=== PATIENT | male | born 1990 | race Caucasian/White ===

== ENCOUNTER 2018-03-31 17:01 | Observation (INO) ==
[2018-03-31 18:14] LABS: Basophils # 0.1 K/mcL (0.0-0.2); Basophils % 0.7 %; Eosinophils # 0.3 K/mcL (0.0-0.6); Eosinophils % 2.9 %; Hematocrit 39.4 % (37.5-50.1); Hemoglobin 13.2 g/dL (12.9-16.9); Immature Granulocytes % 0.4 % (0-4); Lymphocytes # 1.9 K/mcL (0.6-4.6); Lymphocytes % 18.4 %; Mean Corpuscular HGB Conc 33.5 g/dL (31.6-35.5); Mean Corpuscular Hemoglobin 29.8 pg (28.0-33.3); Mean Corpuscular Volume 88.9 fL (83.0-100.0); Mean Platelet Volume 10.9 fL (9.4-12.4); Monocytes % 10.4 %; Neutrophils # 6.7 K/mcL (1.6-8.9); Platelet Count 237 K/mcL (140-400); Red Blood Count 4.43 M/mcL (4.19-5.50); Red Cell Distribution Width 13.1 % (11.5-14.5); Segmented Neutrophils % 67.2 %
[2018-03-31 18:32] LABS: Alanine Aminotransferase 23 Units/L (7-52); Albumin 4.2 g/dL (3.5-5.7); Albumin/Globulin Ratio 1.4 (1.1-2.2); Alkaline Phosphatase 66 Units/L (34-104); Aspartate Amino Transferase 20 Units/L (13-39); BUN/Creatinine Ratio 18 (6-26); Bilirubin,Direct 0.2 mg/dL (0.0-0.2); Bilirubin,Indirect 0.4 mg/dL (0.0-1.2); Bilirubin,Total 0.6 mg/dL (0.3-1.0); Blood Urea Nitrogen 14 mg/dL (6-20); Calcium 9.2 mg/dL (8.6-10.3); Carbon Dioxide 29 mEq/L (23-29); Chloride 101 mEq/L (98-107); Globulin 2.9 g/dL (2.4-3.5); Glucose 98 mg/dL (70-105); Lipase 9 Units/L (11-82); Osmolality,Calculated 282 (280-300); Potassium 4.4 mEq/L (3.5-5.1); Sodium 136 mEq/L (136-145); Total Protein 7.1 g/dL (6.4-8.9); eGFR For Non-African Americans > 60 (> 60)
[2018-03-31] MEDS ORDERED: *HR* Morphine Immed Rel 30 MG TABLET PO ONE (19:21)
[2018-03-31] MEDS ORDERED: Ketorolac 15 MG/ML VIAL IVP ONE (19:21)
[2018-03-31] MEDS ORDERED: Ondansetron 4 MG/2 ML VIAL IVP ONE (19:21)
--- NOTE | 2018-03-31 19:22 | Emergency Department Note ---
Disposition Clinical Impression: Appendicitis Qualifiers: Appendicitis type: acute appendicitis Acute appendicitis type: unspecified acute appendicitis type Qualified Code(s): K35.80 - Unspecified acute appendicitis Disposition: Admitted As Inpatient Abdominal Pain HPI - General Chief Complaint: ED Abdominal Pain Stated Complaint: "appendix is about to pop" Time Seen by Provider: 03/31/18 19:09 Nursing Notes Reviewed: Yes Vital Signs Reviewed: Yes - History of Present Illness HPI Narrative: 27-year-old male presents emergency department with concern for sudden onset right lower quadrant abdominal pain that started at midnight. Patient states that this been going on throughout the day. He states that he ate breakfast this morning and did not throw it up, but he has been very nauseous. Reports no fevers. Does report mild dysuria. Does report some flank pain with it but denies any testicular pain. Has not eaten since noon today. Pain Scale: 6 - Related Data Home Medications Medication Instructions Recorded Confirmed No Known Home Drugs 03/31/18 03/31/18 Allergies Allergy/AdvReac Type Severity Reaction Status Date / Time No Known Allergies Allergy Verified 03/31/18 17:40 All systems ED: reviewed and negative except as stated. Review of Systems: As Per HPI Constitutional: Denies: fever Cardiovascular: Denies: chest pain Respiratory: Denies: cough, dyspnea Gastrointestinal: Reports: abdominal pain, nausea. Denies: vomiting Genitourinary: Denies: urgency, dysuria, frequency Musculoskeletal: Reports: back pain Integumentary: Denies: rash Neurological: Denies: weakness Hematological/Lymphatic: Denies: easy bleeding Abdominal Pain PMH - Past Medical History Medical history: Reports: non-contributory Male Surgical History: Reports: no surgical history Psychiatric history: Reports: no psych history - Social History Smoking status: Current some day smoker Alcohol use: Reports: none Drug use: Reports: none Physical Exam - Head Head exam: normocephalic - Eye Eye exam: Present: EOMI - ENT ENT exam: mucous membranes moist - Neck Neck exam: Present: trachea midline - Chest Chest inspection: Present: symmetric chest wall rise - Respiratory Respiratory exam: Present: normal lung sounds bilaterally. Absent: respiratory distress, prolonged expiratory phase - Cardiovascular Cardiovascular exam: Present: regular rate, normal rhythm - Abdominal Exam Abdominal exam: Present: soft, tenderness, tenderness at McBurney's Point. Absent: distention, guarding, rebound, rigidity - Extremities Exam Extremities exam: Present: full ROM - Back Exam Back exam: Present: full ROM - Neurological Exam Neurological exam: Present: alert, oriented X3 - Psychiatric Psychiatric exam: Present: normal affect, normal mood - Skin Skin exam: Present: warm, dry, intact, normal color. Absent: rash Course Vital Signs Temperature 99.0 F 03/31/18 17:39 Pulse Rate 68 03/31/18 17:39 Respiratory Rate 14 03/31/18 17:39 Blood Pressure 114/71 03/31/18 17:39 O2 Sat by Pulse Oximetry 96 03/31/18 17:39 Temperature 99.0 F 03/31/18 19:29 Pulse Rate 64 03/31/18 21:06 Respiratory Rate 18 03/31/18 21:06 Blood Pressure 116/80 03/31/18 21:06 O2 Sat by Pulse Oximetry 98 03/31/18 21:06 Oxygen Delivery Oxygen Delivery Room Air Abdominal Pain - MDM Narrative Medical decision making narrative: Residual male presents emergency department with concern for right lower quadrant abdominal pain since midnight. We will obtain CT scan of abdomen and pelvis. Revealed acute appendicitis with large appendicolith by radiology. I called the general surgeon instructional systems specialist, Dr. jaramillo. He agreed to accept patient for admission on the floor. Patient was given Zosyn here in the emergency department. Of also ordered his repeat dose at 8 hours after his first one. Patient has been given fluids. His also been given pain medication. Patient's last meal was at noon today. Patient hemodynamically stable at this time. He does not have a leukocytosis. Currently awaiting urinalysis results at time of admission. Patient agrees to plan. Abdomen/Pelvis CT 03/31/18 19:19 IMPRESSION: Findings are compatible with acute appendicitis, with a large appendicolith. Small amount of fluid adjacent to the inflamed appendix and within the pelvis. No drainable abscess. No evidence of intra-abdominal free air. D/ / 03/31/2018 20:38:12 Randy Willingham MD / jasson Interpreting Provider: Randy Willingham MD Vital Signs Temperature 99.0 F 03/31/18 17:39 Pulse Rate 68 03/31/18 17:39 Respiratory Rate 14 03/31/18 17:39 Blood Pressure 114/71 03/31/18 17:39 O2 Sat by Pulse Oximetry 96 03/31/18 17:39 Temperature 99.0 F 03/31/18 19:29 Pulse Rate 64 03/31/18 21:06 Respiratory Rate 18 03/31/18 21:06 Blood Pressure 116/80 03/31/18 21:06 O2 Sat by Pulse Oximetry 98 03/31/18 21:06 Oxygen Delivery Oxygen Delivery Room Air - Lab Data Result diagrams: 03/31/18 17:57 03/31/18 17:57 Lab Results 03/31/18 03/31/18 Range/Units 17:57 17:57 WBC 10.0 (4.3-11.1) K/mcL RBC 4.43 (4.19-5.50) M/mcL Hgb 13.2 (12.9-16.9) g/dL Hct 39.4 (37.5-50.1) % MCV 88.9 (83.0-100.0) fL MCH 29.8 (28.0-33.3) pg MCHC 33.5 (31.6-35.5) g/dL RDW 13.1 (11.5-14.5) % Plt Count 237 (140-400) K/mcL MPV 10.9 (9.4-12.4) fL Immature Gran % 0.4 (0-4) % Seg Neutrophils % 67.2 % Lymphocytes % 18.4 % Monocytes % 10.4 % Eosinophils % 2.9 % Basophils % 0.7 % Neutrophils # 6.7 (1.6-8.9) K/mcL Lymphocytes # 1.9 (0.6-4.6) K/mcL Monocytes # 1.0 (0.0-1.3) K/mcL Eosinophils # 0.3 (0.0-0.6) K/mcL Basophils # 0.1 (0.0-0.2) K/mcL Sodium 136 (136-145) mEq/L Potassium 4.4 (3.5-5.1) mEq/L Chloride 101 (98-107) mEq/L Carbon Dioxide 29 (23-29) mEq/L BUN 14 (6-20) mg/dL Creatinine 0.77 (0.70-1.30) mg/dL Est GFR ( Amer) > 60 (> 60) Est GFR (Non-Af Amer) > 60 (> 60) BUN/Creatinine Ratio 18 (6-26) Glucose 98 (70-105) mg/dL Calculated Osmolality 282 (280-300) Calcium 9.2 (8.6-10.3) mg/dL Total Bilirubin 0.6 (0.3-1.0) mg/dL Direct Bilirubin 0.2 (0.0-0.2) mg/dL Indirect Bilirubin 0.4 (0.0-1.2) mg/dL AST 20 (13-39) Units/L ALT 23 (7-52) Units/L Alkaline Phosphatase 66 (34-104) Units/L Serum Total Protein 7.1 (6.4-8.9) g/dL Albumin 4.2 (3.5-5.7) g/dL Globulin 2.9 (2.4-3.5) g/dL Albumin/Globulin Ratio 1.4 (1.1-2.2) Lipase 9 L (11-82) Units/L Attestation Statement - Attestation Attestation: Dr Trivedi : Pt seen in conjunction w/ Resident DR Hanson; Please see his charting for complete documentation; I spent face to face time w/ the pt and agree w/ the pt 's treatment and disposition; Constant rt lower quadrant pain x 1 days; n/v +; no such sx prior; labs/ct reviewed; accepted to /by Dr Jaramillo;
[2018-03-31] MEDS ORDERED: Piperacillin/Tazobactam 3.375 GM in 0.9 % Sodium Chloride Mini Bag 100 ML IVPB ONE (20:35)
[2018-03-31] MEDS ORDERED: 0.9 % Sodium Chloride 250 ML IVC ONE (22:28)
[2018-03-31] MEDS ORDERED: 0.9 % Sodium Chloride 1,000 ML IV ONE (22:30)
[2018-03-31] MEDS ORDERED: Ondansetron 4 MG/2 ML VIAL IVP PRN (22:30)
[2018-03-31] MEDS: OXYCODONE Oral CONC 10 MG/0.5 ML ORAL.SYG SL PRN (22:59)
[2018-03-31 23:12] LABS: Bilirubin,Urine Small (Negative); Blood,Urine Negative (Negative); Clarity,Urine Clear (Clear); Color,Urine Dark Yellow (Yellow); Glucose,Urine (UA) Normal (Normal); Ketones,Urine Trace mg/dL (Negative); Leukocyte Esterase,Urine Negative (Negative); Nitrite,Urine Negative (Negative); Protein,Urine Trace mg/dL (Neg-Trace); Specific Gravity,Urine 1.023 (1.010-1.025); Urobilinogen,Urine Normal (Normal)
[2018-03-31 23:14] LABS: Bacteria,Urine None Seen per hpf (None-Few); Hyaline Casts,Urine None Seen per lpf (None-Few); RBC,Urine 0-3 per hpf (0-3); Squamous Epithelial Cell,Urine Moderate per lpf (None-Few); WBC,Urine 0-3 per hpf (0-3)
[2018-03-31] MEDS: 0.9 % Sodium Chloride 1,000 ML IVC SCH (23:55)
[2018-04-01] MEDS ORDERED: Piperacillin/Tazobactam 3.375 GM in Water for inj. (sterile) 20 ML 20 ML IVP ONE (05:00)
[2018-04-01] MEDS ORDERED: Piperacillin/Tazobactam 3.375 GM in 0.9 % Sodium Chloride Mini Bag 100 ML IVPB ONE ×2 (05:00→14:00)
--- NOTE | 2018-04-01 07:49 | General Surg History&Physical ---
Date of Encounter: 04/01/18 Time of Encounter: 07:20 History of Present Illness Chief complaint: Acute right lower quadrant abdominal pain, acute appendicitis HPI: Mr. Gibson is a 27 year old male referred to surgical services for further evaluation and treatment after presenting to the [facility] emergency department with new onset right lower quadrant abdominal pain, nausea and vomiting. Patient indicates symptoms started occipitally 2400 hrs. and slowly progressed in severity prompting the patient presented to the emergency department for further evaluation and treatment. Evaluation included lab work which was unremarkable. White count was 10.0, hemoglobin 13.2, hematocrit 39.4. Differential was normal. Electrolytes, BUN, creatinine were also within normal limits. LFTs were normal and urinalysis demonstrated trace ketones and small bilirubin but no significant microscopic findings. CT of the abdomen and pelvis demonstrated an enlarged appendix containing multiple appendicoliths. There was thickening and inflammation surrounding the appendix consistent with acute appendicitis. Past medical history: Unremarkable. The patient denies any history of diabetes , heart disease, hypertension, or pulmonary disease Surgical history: No prior surgeries Allergies: No known drug allergies Medications: No routine home meds Social history: Patient is employed on the [employer]; this entails a great deal of lifting. He smokes occasionally but chews tobacco daily. The patient has used tobacco (smokeless) for approximately 10 years. Patient admits to an occasional alcoholic beverage. He denies any illicit drug use. Family history: Multiple family members: brothers, cousin with history of perforated appendicitis Physical examination: Thin, age-appropriate male resting comfortably in his hospital bed. He is 1.88 m tall, 63.5 kg, BMI 18.0 The patient has been afebrile, currently 98.0; hemodynamically stable with pulse of 61, respirations 16, blood pressure 103/65 Skin: Warm, no obvious jaundice. Multiple piercings are evident. Lungs: Clear to auscultation minimal right lower quadrant abdominal pain on deep inspiration Cardiac: Regular rate, no appreciable murmurs Abdomen: Soft, nondistended with tenderness in the right lower quadrant. There were no discernible intra-abdominal masses. No peritoneal signs. Bowel sounds were hypoactive Extremities: No obvious clubbing, cyanosis, or edema. Impression: 27-year-old with new onset right lower quadrant abdominal pain accompanied by nausea and vomiting. The nausea and vomiting has been controlled. 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 Treatment options include surgery (appendectomy) versus expectant follow-up with pain control, IV fluids, and IV antibiotics. Risks of this treatment include worsening pain, progressive appendicitis with perforation. If the patient responds to treatment as potential for recurrent acute appendicitis in the future. Alternatively the patient can consider surgery. The patient is a reasonable candidate for laparoscopic appendectomy but understands an open appendectomy may become necessary. Risks of surgery include hemorrhage, infection, intra-abdominal abscess, injury to adjacent structures such as small bowel, colon, bladder, and ureters. If a normal appendix is encountered it will be removed. The patient has opted to proceed with surgery. He has been given nothing by mouth since admission except medications with sips of water. He is currently being treated with IV antibiotics. Surgical consent has been obtained. Past Med Surg Social Fam HX - Past Medical History Medical history: non-contributory Psychiatric history: no psych history - Social History Smoking Status: Current some day smoker Smokeless Tobacco Status: Yes Alcohol use: none Drug use: none Medications and Allergies No Known Home Drugs 03/31/18 [History] 3 Allergy/AdvReac Type Severity Reaction Status Date / Time No Known Allergies Allergy Verified 03/31/18 17:40 Review of Systems All systems PM: The remainder of the systems were reviewed and are negative General Surgery Exam Initial Vital Signs Temp Pulse Resp BP Pulse Ox 99.0 F 68 14 114/71 96 03/31/18 17:39 03/31/18 17:39 03/31/18 17:39 03/31/18 17:39 03/31/18 17:39 Results - Labs 03/31/18 17:57 03/31/18 17:57 Abnormal lab results Lipase 9 Units/L (11-82) L 03/31/18 17:57 Urine Ketones Trace mg/dL (Negative) H 03/31/18 23:00 Urine Bilirubin Small (Negative) H 03/31/18 23:00 Ur Squamous Epith Cells Moderate per lpf (None-Few) H 03/31/18 23:00 All other labs normal.
[2018-04-01] MEDS: OXYCODONE Oral CONC 10 MG/0.5 ML ORAL.SYG SL PRN (07:58)
[2018-04-01] MEDS: 0.9 % Sodium Chloride 1,000 ML IVC SCH (10:51)
[2018-04-01] MEDS ORDERED: *HR* FentaNYL (PF) 100 MCG/2 ML VIAL ONE (13:18)
[2018-04-01] MEDS ORDERED: *HR* Midazolam HCl 2 MG/2 ML VIAL ONE (13:18)
--- NOTE | 2018-04-01 13:18 | Anesthesia Evaluation PreOp ---
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: Denies Any Significant HX Other Medical History: Denies Any Significant HX Anesthesia History: Past Anesthesia (denies PSH) Alcohol Use: none Drug use: none Medications and Allergies No Known Home Drugs 03/31/18 [History] 3 Allergy/AdvReac Type Severity Reaction Status Date / Time No Known Allergies Allergy Verified 03/31/18 17:40 - Meds/Allergy Pre-op Review Medications Reviewed: Yes Allergies Reviewed: Yes Beta Blockers on Current Med List: No Anesthesia Results - Labs 03/31/18 17:57 03/31/18 17:57 Anesthesia Exam Selected Entries 04/01/18 10:32 Temperature 98.1 F Pulse Rate 57 Respiratory Rate 16 Blood Pressure 112/69 O2 Sat by Pulse Oximetry 98 Oxygen Delivery Method Room Air Weight: 64kg NPO (# of Hours): 8 - HEENT Pupil (Motor): EOMI Mallampati: II Teeth: Normal Oral Opening: Greater than 3 - FOOD WRITER LOC: Oriented FOOD WRITER Motor: Normal RUE, Normal LUE, Normal RLE, Normal LLE, Normal Face FOOD WRITER Sensory: Normal: RUE, LUE, RLE, LLE, Face - Cardiac Rhythm: Regular Murmur: None - Pulmonary Breath Sounds: bilateral Clear Respiratory Effort: Symmetrical Anesthesia Assess/Plan ASA Score: 1 Modified [place] Scale for Level of Consciousness: Cooperative, oriented, and tranquil Anesthetic Plan: General Monitoring Plan: Standard Monitors Recovery Plan: PACU (agrees to GA)
[2018-04-01] MEDS ORDERED: *HR* Propofol 200 MG/20 ML VIAL IVP ONE ×2 (13:19→15:47)
[2018-04-01] MEDS ORDERED: Bupivacaine/EPI 1:200k 0.25%PF 30 ML VIAL ONE (14:11)
[2018-04-01] MEDS ORDERED: Ondansetron 4 MG/2 ML VIAL ONE (14:52)
[2018-04-01] MEDS ORDERED: Dexamethasone 4 MG/ML VIAL ONE (14:52)
[2018-04-01] MEDS ORDERED: *HR* Morphine 10 MG/ML VIAL ONE (15:09)
[2018-04-01] MEDS ORDERED: Neostigmine Methylsulfate 3 MG/3 ML SYRINGE ONE (15:22)
[2018-04-01] MEDS ORDERED: *HR* OxyCODONE/APAP 5/325 TABLET PO PRN (15:27)
[2018-04-01] MEDS ORDERED: *HR* HYDROmorphone (PF) 1 MG/ML SYRINGE IVP PRN (15:27)
[2018-04-01] MEDS ORDERED: Ondansetron 4 MG/2 ML VIAL IVP ONE (15:27)
[2018-04-01] MEDS ORDERED: *HR* Meperidine 25 MG/ML SYRINGE IVP PRN (15:53)
[2018-04-01] MEDS: *HR* Promethazine 25 MG/ML VIAL IVP PRN ×2 (16:03→16:43)
[2018-04-01] MEDS ORDERED: Ringers Solution, Lactated 500 ML IVC ONE (16:21)
--- NOTE | 2018-04-01 16:34 | Operative Note ---
Date of procedure: 04/01/18 Pre-op diagnosis: acute appendicitis Post-op diagnosis: same Procedure: laparoscopic appendectomy Complications: none apparent Anesthesia: GETA Local Anesthetics: 0.25% Sensorcaine HCL with Epinephrine 1:200,000 SubQ (cc) ( 27 mL) Surgeon: Anant Jaramillo Was there an assistant producer present: No Estimated blood loss (cc): 10 IV fluids (cc): 1,000 Specimen: appendix Condition: stable Disposition: PACU Procedure in Detail: The patient was brought to the operating room where he was placed supine on the procedure table. The patient was appropriately identified as to person and procedure. The accuracy of this information was confirmed by the patient and procedure team. The patient was then intubated and anesthetized under the supervision of Dr. Mark Chino. The abdomen was examined under anesthesia. There were no true abdominal or pelvic masses detected. The abdomen was prepped and draped in the usual sterile fashion. Several milliliters of 0.25% bupivacaine with 1-200,000 units epinephrine was infiltrated into the infraumbilical skin. Small transverse incision was made. Additional bupivacaine with epinephrine was infiltrated in the fascia. before the fascia was grasped, elevated, and incised. An 11 mm Xcel port was established. The rigid laparoscope was placed within the obturator to visualize passage through the layers the anterior abdominal wall. Once the abdominal cavity was accessed , the obturator was replaced by the rigid laparoscope, the abdomen was insufflated with gaseous carbon dioxide. There was no obvious visible injury from establishing the port. Under direct visualization a 5 mm port was established in the suprapubic midline abdomen and a 12 mm port established in the left lower quadrant, midclavicular line. Each of the sites was infiltrated with bupivacaine with epinephrine solution. The cecum was identified and elevated. An acutely inflamed, enlarged retrocecal appendix was identified. The mesoappendix was divided at the junction between the appendix and the cecum. The appendix was then transected at its junction with the cecum using an Ethicon ATS 45 mm stapler using a blue cartridge. The appendix was mobilized from its retrocecal position and the mesoappendix was divided using an Ethicon ATS 45 mm stapler using vascular cartridges. 2 applications were necessary to completely transect the mesoappendix. When the appendix was from the surrounding structures, it was placed in an endoscopic pouch and removed via the infraumbilical opening. The appendix was recovered and sent to pathology for analysis. A large appendicolith was evident within the appendix. The appendix was inflamed but without evidence of perforation. The staple lines were examined. These were intact. Hemostasis was adequate. A small amount of bloody fluid accumulated in the right paracolic gutter was evacuated with an endoscopic suction device. The pneumoperitoneum was then evacuated, the instrumentation removed. The fascia of the infraumbilical opening and the 12 mm port in the left lower quadrant were closed with interrupted [id number] 0 Vicryl using S retractors. The skin edges of the port sites were approximated with subcuticular 4-0 Vicryl. The incisions were sealed with Dermabond dermal adhesive. The patient was taken to PACU in stable condition. Needle, sponge, and instrument counts were correct close of the case. Total volume of 0.25% bupivacaine with 1-200,000 units epinephrine used during this procedure, 27 mL.
[2018-04-01] MEDS ORDERED: Ondansetron 4 MG/2 ML VIAL IVP PRN (17:42)
[2018-04-01] MEDS: Ringers Solution, Lactated 1,000 ML IVC SCH (18:48)
[2018-04-01] MEDS: *HR* OxyCODONE Immed Rel 5 MG TABLET PO PRN (18:52)
[2018-04-01] MEDS: Acetaminophen 325 MG TABLET PO PRN (20:30)
[2018-04-02] MEDS: *HR* OxyCODONE/APAP 5/325 TABLET PO PRN ×2 (02:00→08:31)
[2018-04-02 06:04] LABS: Basophils % 0.1 %; Hematocrit 34.9 % (37.5-50.1); Hemoglobin 11.4 g/dL (12.9-16.9); Immature Granulocytes % 0.4 % (0-4); Lymphocytes # 0.9 K/mcL (0.6-4.6); Lymphocytes % 9.8 %; Mean Corpuscular HGB Conc 32.7 g/dL (31.6-35.5); Mean Corpuscular Hemoglobin 28.9 pg (28.0-33.3); Mean Corpuscular Volume 88.4 fL (83.0-100.0); Mean Platelet Volume 11.5 fL (9.4-12.4); Monocytes # 0.7 K/mcL (0.0-1.3); Monocytes % 7.1 %; Neutrophils # 7.9 K/mcL (1.6-8.9); Platelet Count 219 K/mcL (140-400); Red Blood Count 3.95 M/mcL (4.19-5.50); Red Cell Distribution Width 12.9 % (11.5-14.5); Segmented Neutrophils % 82.6 %
[2018-04-02] MEDS: Acetaminophen 325 MG TABLET PO PRN (06:15)
[2018-04-02] MEDS: Ringers Solution, Lactated 1,000 ML IVC SCH (08:30)
[2018-04-02] MEDS: *HR* OxyCODONE Immed Rel 5 MG TABLET PO PRN (10:24)
[2018-04-02 11:53] VITALS: BP 111/63
--- NOTE | 2018-04-02 12:17 | General Surgery Progress Note ---
Date of Encounter: 04/02/18 Time of Encounter: 12:14 Subjective Patient reports: feels better, still having pain, pain is less Narrative: General Surgery - POD #1 Patient doing well; right lower quadrant abdominal pain resolved but infraumbilical pain is noted. The infraumbilical pain is related to the port site and extraction of the acutely inflamed appendix through this opening. Patient also experienced shoulder pain last evening but this has resolved. Shoulder pain is likely due to insufflated CO2 into the abdomen with diaphragmatic irritation. This was explained to the patient. Patient has been afebrile since surgery, currently 98.2, pulse 60, respirations 14, blood pressure 111/63. Lungs: Clear; no abdominal pain with deep inspiration. Abdomen: Soft, with infraumbilical tenderness. Port sites intact and healing well. The peritoneal signs. Active bowel sounds. Patient is tolerating a regular diet Laboratories: White count 9.6, hemoglobin 11.4 with hematocrit 34.9.- He [place] hematocrit have diminished slightly related to perioperative fluids. Impression: Acute appendicitis, postoperative day #1, status post laparoscopic appendectomy acceptable postoperative status Plan: Discharge home Outpatient follow-up, 04/10/18 Objective Vital Signs - Last 8 Hours Temp Pulse Resp BP Pulse Ox 04/02/18 11:51 98.2 F 60 14 111/63 99 04/02/18 07:32 97.8 F 58 16 117/72 98 Intake and Output 04/01/18 04/02/18 04/02/18 23:59 07:59 15:59 Intake Total 1580 / 1580 1360 / 1360 Output Total 400 / 400 Balance 1570 / 1570 -400 / -400 1360 / 1360 Intake: IV Fluids 1100 / 1100 1000 / 1000 Lactated Ringers 1,000 ML @ 75 1000 / 1000 mls/hr IVC .[id number] BONNIE Rx#: [id number] Zosyn 3.375 GM In 0.9 % Sodium 100 / 100 Chloride (Mini-Bag +) 100 ML @ 25 mls/hr IVPB Q8HR ONE Rx#: [id number] Oral 480 / 480 360 / 360 Output: Urine 0 / 0 400 / 400 Estimated Blood Loss Other: Meal Breakfast Percent of Meal Consumed 100% Weight 63 kg Patient Weight 04/02/18 23:59 Weight 63 kg - Labs 04/02/18 05:30 03/31/18 17:57 Consult Discharge Plan - Plan Referrals: Anant Jaramillo MD [Non-Partnered Physician] -
--- NOTE | 2018-04-02 12:21 | Discharge Summary ---
Outpatient Proc Discharge Plan - Plan Additional Instructions: Patient may consume a regular diet Activity as tolerated; lifting limited less than 20 pounds Patient may shower, wash incisions with soap and water Tylenol, ibuprofen, Motrin, Advil, Aleve, etc. as needed for pain Prescription for Percocet 5/325, #12, one every 6-8 hours as needed for pain not relieved by Tylenol or other [id number] medications Outpatient follow-up, 04/10/18 Prescriptions: OxyCODONE/APAP 5/325 [Percocet 5/325 MG] 1 each PO Q6HR PRN 3 Days #12 tablet PRN Reason: Pain Home Medications: Acetaminophen [Tylenol] 650 mg PO Q6HR PRN tablet 04/02/18 [Rx] OxyCODONE/APAP 5/325 [Percocet 5/325 MG] 1 each PO Q6HR PRN 3 Days #12 tablet [Rx]
== END 2018-04-02 13:49 | disposition home or self-care (01) ==
LOC: EMEROOARM 17:01 → 3ANU 17:01
PROVIDERS: ADMIT Surgery; ATTEND Surgery